=== PATIENT | female | born 1980 | race Caucasian/White ===

== ENCOUNTER 2021-04-08 22:20 | Emergency (ER) | payer SELFPAY ==
[2021-04-09] MEDS ORDERED: Morphine 4 MG/ML VIAL ONE (00:35)
[2021-04-09] MEDS ORDERED: Ampicillin/Sulbactam 3 GM in Sodium Chloride 0.9% 100 ML IVPB SCH (00:45)
[2021-04-09] MEDS ORDERED: Iopamidol 370 76% 100 ML VIAL ONE (09:05)
== END 2021-04-09 04:47 | disposition home or self-care (01) ==
LOC: ERS 22:20
DX: M86.8X9 Other osteomyelitis, unspecified sites (principal); K00.7 Teething syndrome; L03.211 Cellulitis of face; J32.0 Chronic maxillary sinusitis; I10 Essential (primary) hypertension; F17.210 Nicotine dependence, cigarettes, uncomplicated
CPT/HCPCS: 70487; 96365; 96375; J0295; J2270; J3490